=== PATIENT | male | born 1960 | race Caucasian/White ===

== ENCOUNTER 2022-09-23 20:23 | Inpatient (IN) | payer MEDICARE, MEDICAID, SELFPAY ==
[2022-09-23 20:24] VITALS: BP 182/109; PULSE 130; RESP 23; TEMP 36.4; O2SAT 97; BMI 20.3
--- NOTE | 2022-09-23 20:24 | EKG12_ITS ---
Test Reason : PALPATATIONS Blood Pressure : / mmHG Vent. Rate : 124 BPM Atrial Rate : 120 BPM P-R Int : 140 ms QRS Dur : 158 ms QT Int : 356 ms P-R-T Axes : 054 089 023 degrees QTc Int : 511 ms Undetermined rhythm Right bundle branch block Abnormal ECG Premature ventricular complexes Confirmed by MICHA ALVES ([id number]), electronic news gathering editor ANGIE THORNTON ([id number]) on 10/02/2022 1:57:13 PM Referred By: Confirmed By:MICHA ALVES
[2022-09-23 20:28] VITALS: PULSE 134; RESP 21; O2SAT 94
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
[2022-09-23 20:39] LABS: Hematocrit 48.6 % (40-54); Hemoglobin 17.3 g/dL (13.0-16.5); Mean Corp Hgb Conc 35.6 g/dL (32-36); Mean Corpuscular Volume 92.6 fL (80-94); Mean Platelet Vol. 8.7 fl (6.2-12.0); Platelet Count 379 K/mm3 (150-450); RBC Distribution Width CV 13.7 % (11.6-14.6); RBC Distribution Width SD 47.2 fl (35.1-43.9); Red Blood Count 5.25 M/mm3 (4.6-6.2); White Blood Count 16.7 K/mm3 (4.4-11.0)
[2022-09-23 21:08] LABS: Anion Gap 12 (5-15); BUN 5 mg/dL (7-18); BUN/Creat Ratio 8.3 RATIO (10-20); Chloride 96 mmol/L (98-107); EST Glomerular Filtration Rate 146 mL/min (>60); Est Glom Filt Rate - Afr Amer 176 mL/min (>60); Estimated Creatinine Clearance 114.29 ml/min; Glucose 106 mg/dL (74-106); Potassium 3.3 mmol/L (3.5-5.1); Sodium Level 130 mmol/L (136-145); Troponin-I HS 290 pg/mL (3.0-78.0)
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
[2022-09-23 21:41] LABS: International Normalized Ratio 0.9; Prothrombin Time (Protime)PT. 12.5 SECONDS (11.7-14.9)
[2022-09-23 21:42] LABS: Partial Thromboplast Time 33.1 Seconds (24.1-36.2)
[2022-09-23] MEDS: Heparin Injection (Vial) 5,000 UNIT/ML VIAL 4500 UNIT IV (21:48)
[2022-09-23] MEDS: HEPARIN/D5w 25,000 UNITS 25,000 UNITS/250 ML IV.SOLN. 10 UNITS CONT INF (21:49)
[2022-09-23 21:51] VITALS: BP 162/94; PULSE 118; RESP 18; TEMP 36.3; O2SAT 97
[2022-09-23 22:27] LABS: Troponin-I HS (w/2H Reflex) 1368 pg/mL (3.0-78.0)
[2022-09-23 22:38] LABS: Magnesium 1.9 mg/dL (1.6-2.6); Phosphorus 2.8 mg/dL (2.5-4.9)
[2022-09-23 22:51] VITALS: BMI 20.4
[2022-09-23 22:51] LABS: Procalcitonin < 0.04 ng/mL (0.00-0.09)
[2022-09-23 22:56] VITALS: BP 175/100; PULSE 107; RESP 18; TEMP 36.9; O2SAT 98
[2022-09-23] MEDS: 0.9% Normal Saline 1,000 ML 100 ML IV (23:18)
[2022-09-23 23:33] VITALS: O2SAT 97
[2022-09-23 23:45] VITALS: BP 141/98; PULSE 102; RESP 21; O2SAT 96
[2022-09-23] MEDS: Potassium Chloride Oral Tablet 20 MEQ 40 MEQ PO (23:47)
[2022-09-23] MEDS: Amiodarone 360 MG in Dextrose 5% Viaflo Bag 192.8 ML 33.3 MG CONT INF (23:59)
[2022-09-24] VITALS (22 sets, daily range): BP systolic 103–179; BP diastolic 72–98; PULSE 71–137; RESP 14–22; TEMP 36.6–36.9; O2SAT 95–100; BMI 20.4
[2022-09-24] MEDS: Famotidine 20 MG Tablet 40 MG PO ×2 (00:02→20:04)
[2022-09-24] MEDS: traZODone 100 MG Tablet PO ×2 (00:02→20:05)
[2022-09-24 00:04] LABS: Reflex Troponin-HS? (from REC) Y
[2022-09-24 01:03] LABS: Troponin-I HS 1902 pg/mL (3.0-78.0)
[2022-09-24 04:52] LABS: Absolute Lymphocyte Count 1.48 X10^3/uL (0.83-4.51); Absolute Neutrophil Count 8.9 X10^3/uL (2.0-7.7); Basophil# 0.08 X10^3/uL; Basophil% 0.7 % (0-1); Eosinophil# 0.21 X10^3/uL; Eosinophils% 1.8 % (0-5); Hematocrit 45.4 % (40-54); Hemoglobin 15.8 g/dL (13.0-16.5); Lymphocyte # 1.48 X10^3/ul (0.83-4.51); Lymphocyte % 12.4 % (19-41); Mean Corp Hgb Conc 34.8 g/dL (32-36); Mean Corpuscular Hgb 32.6 pg (27.0-32.0); Mean Corpuscular Volume 93.6 fL (80-94); Mean Platelet Vol. 9.2 fl (6.2-12.0); Monocyte# 1.27 X10^3/uL; Monocyte% 10.6 % (0-10); NRBC Flagged by Analyzer 0 % (0-5); Neutrophil # 8.87 X10^3/uL (2.7-7.7); Neutrophil % 74.1 % (47-70); Platelet Count 333 K/mm3 (150-450); RBC Distribution Width CV 13.8 % (11.6-14.6); RBC Distribution Width SD 47.9 fl (35.1-43.9); Red Blood Count 4.85 M/mm3 (4.6-6.2)
[2022-09-24 04:54] LABS: Troponin-I HS 1590 pg/mL (3.0-78.0)
[2022-09-24 05:15] LABS: ALB/GLOB Ratio 0.8 RATIO (0.9-2.4); AST(SGOT) 20 U/L (15-37); Alanine Aminotransfer ALT/SGPT 19 U/L (16-61); Albumin, Serum 3.2 g/dL (3.2-5.0); Alkaline Phosphatase 95 U/L (45-117); Anion Gap 8 (5-15); BUN 5 mg/dL (7-18); BUN/Creat Ratio 11.2 RATIO (10-20); Calcium,Total 8.2 mg/dL (8.5-10.1); Chloride 102 mmol/L (98-107); Cholesterol 141 mg/dL (200); Creatinine, Serum 0.44 mg/dL (0.70-1.30); EST Glomerular Filtration Rate 205 mL/min (>60); Est Glom Filt Rate - Afr Amer 248 mL/min (>60); Estimated Creatinine Clearance 156.35 ml/min; Globulin 3.9 g/dL (2.2-4.2); Glucose 114 mg/dL (74-106); High Density Lipoprotein 73 mg/dL; Potassium 4.2 mmol/L (3.5-5.1); Protein, Total 7.1 g/dL (6.4-8.2); Sodium Level 133 mmol/L (136-145); Triglycerides 58 mg/dL; Very Low Density Lipoprotein 12 mg/dL (5-40)
[2022-09-24] MEDS: Amiodarone 360 MG in Dextrose 5% Viaflo Bag 192.8 ML 16.7 MG CONT INF (06:13)
[2022-09-24] MEDS: Thiamine Hydrochloride 100 MG Tablet PO (08:12)
[2022-09-24] MEDS: Folic Acid 1 MG Tablet PO (08:12)
[2022-09-24] MEDS: Multivitamins,Ther W-Minerals Tablet 1 TABLET PO (08:12)
[2022-09-24] MEDS: Sotalol Hydrochloride 80 MG Tablet 120 MG PO ×2 (08:13→20:05)
[2022-09-24] MEDS: Aspirin E.C. 81 MG Tablet PO (08:14)
[2022-09-24] MEDS: Isosorbide Mononitrate 30 MG Tablet PO (08:14)
[2022-09-24] MEDS: Tamsulosin HCl 0.4 MG Capsule 0.8 MG PO (08:14)
[2022-09-24] MEDS: Clopidogrel Bisulfate 75 MG Tablet PO (08:15)
[2022-09-24] MEDS: Lisinopril 40 MG Tablet PO (08:15)
[2022-09-24] MEDS: amLODIPine 10 MG Tablet PO (08:15)
[2022-09-24] MEDS: Pantoprazole Sodium 20 MG Tablet 10 MG PO (08:15)
[2022-09-24] MEDS: FLUoxetine 10 MG Capsule PO (08:16)
[2022-09-24 12:04] LABS: Partial Thromboplast Time 69.1 Seconds (24.1-36.2)
[2022-09-24] MEDS: hydrOXYzine PAM 25 MG Capsule 50 MG PO (12:35)
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
--- NOTE | 2022-09-24 13:53 | NURSING ---
level of care change to standard 09/24 1200 was entered in error on the wrong pt.
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
[2022-09-24 19:27] LABS: Amphetamine Urine VISTA NEGATIVE (<1000 ng/mL); Barbiturate Urine VISTA NEGATIVE (< 200 ng/mL); Benzodiazepine Urine VISTA NEGATIVE (< 200 ng/mL); Cocaine Urine VISTA NEGATIVE (< 300 ng/mL); Ecstacy Urine VISTA NEGATIVE (< 500 ng/mL); Methadone Urine VISTA NEGATIVE (< 300 ng/mL); PCP Urine VISTA NEGATIVE (< 25 ng/mL); THC Urine VISTA POSITIVE (< 50 ng/mL)
[2022-09-24 19:28] LABS: Vista UDS pH Range 6
[2022-09-24] MEDS: Atorvastatin Calcium 40 MG Tablet PO (20:11)
[2022-09-25 02:00] VITALS: BP 123/90; PULSE 72; RESP 16; TEMP 37; O2SAT 97
[2022-09-25 05:36] VITALS: BMI 20.5
[2022-09-25] MEDS: hydrOXYzine PAM 25 MG Capsule 50 MG PO (06:11)
[2022-09-25 06:21] LABS: Absolute Lymphocyte Count 1.91 X10^3/uL (0.83-4.51); Absolute Neutrophil Count 7.8 X10^3/uL (2.0-7.7); Basophil# 0.09 X10^3/uL; Basophil% 0.8 % (0-1); Eosinophil# 0.29 X10^3/uL; Eosinophils% 2.6 % (0-5); Hematocrit 45.8 % (40-54); Hemoglobin 16.1 g/dL (13.0-16.5); Lymphocyte # 1.91 X10^3/ul (0.83-4.51); Lymphocyte % 17.2 % (19-41); Mean Corp Hgb Conc 35.2 g/dL (32-36); Mean Corpuscular Hgb 32.8 pg (27.0-32.0); Mean Corpuscular Volume 93.3 fL (80-94); Mean Platelet Vol. 9.2 fl (6.2-12.0); NRBC Flagged by Analyzer 0 % (0-5); Neutrophil # 7.76 X10^3/uL (2.7-7.7); Neutrophil % 69.9 % (47-70); Platelet Count 330 K/mm3 (150-450); Red Blood Count 4.91 M/mm3 (4.6-6.2); White Blood Count 11.1 K/mm3 (4.4-11.0)
[2022-09-25 06:51] LABS: Anion Gap 8 (5-15); BUN 6 mg/dL (7-18); BUN/Creat Ratio 11.3 RATIO (10-20); Calcium,Total 8.7 mg/dL (8.5-10.1); Chloride 100 mmol/L (98-107); Creatinine, Serum 0.53 mg/dL (0.70-1.30); EST Glomerular Filtration Rate 167 mL/min (>60); Est Glom Filt Rate - Afr Amer 202 mL/min (>60); Estimated Creatinine Clearance 130.42 ml/min; Glucose 101 mg/dL (74-106); Potassium 3.6 mmol/L (3.5-5.1); Sodium Level 133 mmol/L (136-145)
[2022-09-25 07:15] VITALS: O2SAT 96
[2022-09-25 08:00] VITALS: BP 133/88; PULSE 68; RESP 16; TEMP 36.6; O2SAT 97
[2022-09-25] MEDS: Lisinopril 40 MG Tablet PO (09:02)
[2022-09-25] MEDS: Pantoprazole Sodium 20 MG Tablet 10 MG PO (09:02)
[2022-09-25] MEDS: Thiamine Hydrochloride 100 MG Tablet PO (09:02)
[2022-09-25] MEDS: amLODIPine 10 MG Tablet PO (09:03)
[2022-09-25] MEDS: Isosorbide Mononitrate 30 MG Tablet PO (09:03)
[2022-09-25] MEDS: Aspirin E.C. 81 MG Tablet PO (09:03)
[2022-09-25] MEDS: Folic Acid 1 MG Tablet PO (09:03)
[2022-09-25] MEDS: Multivitamins,Ther W-Minerals Tablet 1 TABLET PO (09:03)
[2022-09-25] MEDS: FLUoxetine 10 MG Capsule PO (09:03)
[2022-09-25] MEDS: Sotalol Hydrochloride 80 MG Tablet 120 MG PO (09:03)
[2022-09-25] MEDS: Tamsulosin HCl 0.4 MG Capsule 0.8 MG PO (09:03)
[2022-09-25] MEDS: Clopidogrel Bisulfate 75 MG Tablet PO (09:03)
--- NOTE | 2022-09-25 10:52 | DCINST_ITS ---
Discharge Instructions Diet Discharge Diet: No restrictions Activity Discharge Activity: Return to Normal Activity Weight Bearing Status: Full weight bearing Follow Up Care Test Results: Test results from this visit will be discussed in further detail at your follow- up appointment, if applicable. 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 within 1 month Discharge Orders/Prescriptions Prescriptions: Continued trazodone 100 mg PO QHS sotalol 120 mg tablet 120 mg PO BID omeprazole 10 mg capsule,delayed release(DR/EC) 10 mg PO DAILY isosorbide mononitrate 30 mg tablet extended release 24 hr 30 mg PO DAILY tamsulosin 0.4 mg capsule 0.8 mg PO DAILY clopidogrel 75 mg tablet 75 mg PO DAILY fluoxetine 10 mg PO DAILY amlodipine 10 mg tablet 10 mg PO DAILY lisinopril 40 mg tablet 40 mg PO DAILY atorvastatin 40 mg tablet 40 mg PO DAILY aspirin [Adult Low Dose Aspirin] 81 mg tablet,delayed release (DR/EC) 81 mg PO DAILY famotidine 40 mg PO QHS Referrals / Follow Up: Care Physician,No Primary [Primary Care Provider] - [facility] Doctor,Out of [Non-Staff] - (Follow-up within 2 weeks) Disposition Disposition (needs filled in before D/C Order can be placed): Home, Self Care
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
--- NOTE | 2022-09-25 11:18 | PHA.DC_ITS ---
Pharmacy [facility] Reconciliation Pharmacy Service has performed discharge medication reconciliation for this patient. The patient's discharge medication list was reviewed for discrepancies and discrepancies were resolved. Medications at Discharge Home Medications amlodipine 10 mg tablet 10 mg PO DAILY 09/23/22 aspirin 81 mg tablet,delayed release (Adult Low Dose Aspirin) 81 mg PO DAILY 09/23/22 atorvastatin 40 mg tablet 40 mg PO DAILY 09/23/22 clopidogrel 75 mg tablet 75 mg PO DAILY 09/23/22 famotidine 40 mg PO QHS 09/23/22 fluoxetine 10 mg PO DAILY 09/23/22 isosorbide mononitrate 30 mg tablet,extended release 24 hr 30 mg PO DAILY 09/23/22 lisinopril 40 mg tablet 40 mg PO DAILY 09/23/22 omeprazole 10 mg capsule,delayed release 10 mg PO DAILY 09/23/22 sotalol 120 mg tablet 120 mg PO BID 09/23/22 tamsulosin 0.4 mg capsule 0.8 mg PO DAILY 09/23/22 trazodone 100 mg PO QHS 09/23/22
== END 2022-09-25 11:39 | disposition home or self-care (01) | DRG 280 ==
LOC: ED 21:37 → PCU 21:48
PROVIDERS: Student in an Organized Health Care Education/Training Program; Admitting Provider Family Medicine; Emergency Provider Emergency Medicine; Visit Provider Internal Medicine
DX: I21.4 Non-ST elevation (NSTEMI) myocardial infarction (principal); E43 Unspecified severe protein-calorie malnutrition; I47.20 Ventricular tachycardia, unspecified; I65.29 Occlusion and stenosis of unspecified carotid artery; I10 Essential (primary) hypertension; F10.10 Alcohol abuse, uncomplicated; I25.10 Atherosclerotic heart disease of native coronary artery without angina pectoris; F17.210 Nicotine dependence, cigarettes, uncomplicated; E87.6 Hypokalemia; E78.5 Hyperlipidemia, unspecified; K21.9 Gastro-esophageal reflux disease without esophagitis; Z95.5 Presence of coronary angioplasty implant and graft; Z82.3 Family history of stroke; Z95.810 Presence of automatic (implantable) cardiac defibrillator; Y90.3 Blood alcohol level of 60-79 mg/100 ml; Z68.20 Body mass index [BMI] 20.0-20.9, adult
CPT/HCPCS: 36415; 80048; 80053; 80061; 80307; 82077; 83735; 84100; 84145; 84484; 85025; 85027; 85610; 85730; 93005; 93288; 93289; 94668; 94762; 97802; 99285; 99406; J7030; A4216